=== PATIENT | male | born 1970 | race Hispanic/Latino ===

== ENCOUNTER → 2017-01-03 | Emergency (ER) | payer OTHER ==
[~2017-01-03] VITALS: Ht 188 cm; Wt 132.7 kg
[~2017-01-03] MED LIST: KEFLEX500 MG PO; NAPROXEN500 MG PO
[2017-01-03 11:49] VITALS: BP 137/91
== END | disposition home or self-care (01) ==
LOC: EME 09:29
DX: L03.011 Cellulitis of right finger (principal); Z23 Encounter for immunization
CPT/HCPCS: 87070; 87075; 87076; 87077; 87147; 87185; 87186; 87205; 99281; 99284

== ENCOUNTER 2017-01-05 19:18 | Emergency (ER) | payer OTHER ==
[~2017-01-05] VITALS: Ht 188 cm; Wt 135.8 kg
[2017-01-05 19:22] VITALS: BP 145/100
== END 2017-01-05 19:30 | disposition home or self-care (01) ==
LOC: EME 19:18
DX: Z48.00 Encounter for change or removal of nonsurgical wound dressing (principal)
CPT/HCPCS: 99281; 99282